=== PATIENT | female | born 1975 | race Caucasian/White ===

== ENCOUNTER 2016-08-08 10:47 | Observation (INO) | payer BC ==
--- NOTE | 2016-08-08 11:27 | CPEKG ---
Heart Rate: 71 RR Interval: 845 P-R Interval: 204 QRSD Interval: 96 QT Interval: 368 QTC Interval: 400 P [place]: 66 QRS [place]: 49 T Wave [place]: 57 EKG Severity - NORMAL ECG - EKG Impression: SINUS RHYTHM Electronically Signed By: Nani Handy 08-Aug-2016 15:12:54
--- NOTE | 2016-08-08 11:41 | EDPHY ---
H & P Stated Complaint: r forehead/r arm tingly started recently while working/hx cva following asd Time Seen by Provider: 08/08/16 11:28 HPI/ROS: CHIEF COMPLAINT: Right sided numbness HISTORY OF PRESENT ILLNESS: The patient is a 41 year old female, with history of CVA 1 year ago due to ASD, who presents to the ED with lightheadedness that started at 10:45 am. The patient felt slightly off balance while working. She then developed tingling in her right forehead and right forearm. The patient was diagnosed with ASD last year after she suffered a occipital stroke. At that time she had right sided weakness and dizziness. She feels her symptoms feel similar, but less severe than prior stroke. She does have a history of panic attacks as well. REVIEW OF SYSTEMS: Aside from elements discussed in the HPI, a comprehensive 10-point review of systems was reviewed and is negative. PAST MEDICAL HISTORY: CVA 08/2015, PSH: hysterectomy, ASC repair 09/2015, SOCIAL HISTORY: [employer] employee. VITAL SIGNS: Reviewed by me GENERAL: Well-developed, well-nourished, resting comfortably in no respiratory distress. HEENT: Atraumatic. Eyes: No icterus, no injection. Mouth: moist mucous membranes. No erythema or lesions. Neck: supple with no adenopathy. LUNGS: Clear to auscultation bilaterally, no wheezes, rhonchi or rales. CARDIAC: Regular rate and rhythm, soft systolic murmur ABDOMEN: Soft, nontender, nondistended, bowel sounds normal. BACK: No CVA tenderness. EXTREMITIES: No trauma. No edema. Range of motion is normal throughout. NEURO: Alert and oriented x3, CN 2-12 intact, motor normal throughout, sensation intact to light touch. No word finding difficulty, fluent speech. SKIN: Warm and dry, no rash. PSYCHIATRIC: Normal mentation, no agitation. Portions of this note were transcribed by a biomedical field service engineer. I personally performed a history, physical exam, medical decision making, and confirmed accuracy of information the transcribed note. Source: Patient - Personal History LMP (Females 10-55): Hysterectomy Current Tetanus/Diphtheria Vaccine: Yes - Medical/Surgical History Hx Asthma: No Hx Chronic Respiratory Disease: No Hx Diabetes: No Hx Cardiac Disease: Yes Hx Renal Disease: No Hx Cirrhosis: No Hx Alcoholism: No Hx HIV/AIDS: No Hx Splenectomy or Spleen Trauma: No Other PMH: PMH: CVA 08/2015,. PSH: hysterectomy, heart surgery (due to hole in heart) 09/2015, - Social History Smoking Status: Never smoked Constitutional: Initial Vital Signs Temperature (C) 36.7 C 08/08/16 10:51 Heart Rate 85 08/08/16 10:51 Respiratory Rate 18 08/08/16 10:51 Blood Pressure 144/89 H 08/08/16 10:51 O2 Sat (%) 95 08/08/16 10:51 O2 Delivery Mode Room Air Allergies/Adverse Reactions: Penicillins Allergy (Verified 08/08/16 10:50) Home Medications: Medication Instructions Recorded Clopidogrel Bisulfate [Plavix (*)] 75 mg PO DAILY@04/12/16 Escitalopram Oxalate [Lexapro] 20 mg PO DAILY@04/12/16 Pravastatin Sodium [Pravachol] 40 mg PO DAILY@04/12/16 clonazePAM [Klonopin (*)] 0.5 - 1 mg PO BID PRN 04/12/16 Herbals/Supplements -Info Only 1 ea PO DAILY 08/08/16 Vitamin B Complex [B Complex] 1 each PO DAILY 08/08/16 Medical Decision Making - Diagnostics EKG Interpretation: The 12 lead EKG was interpreted by myself. See hard copy and/or "tracemaster" electronic copy for interpretation: Sinus rhythm. Imaging: Stat CT scan of head: no intracranial hemorrhage, no acute findings. Left occipital cephalomalacia from old infarct. Discussed with radiologist. See full report. Images viewed myself. ED Course/Re-evaluation: Stroke alert called at 11:[address] negative. 12:05 pm: I spoke to the [facility] neurologist, Dr. De La Rosa. Patient interviewed using the telemedicine robot by Dr De La Rosa. Plan no TPA, needs MRI and further eval to ensure ASD is closed. Discussed with hospitalist service, Dr Bustillos, and with neurology, Dr Orozco. Echocardiogram ordered; per rv service technician bubble study was normal, no evidence of right to left shunting. 12:30 pm: The patient will be admitted to [facility]. Differential Diagnosis: Differential diagnoses the patient's presenting complaints was considered including but not limited to intracranial injury, TIA, ischemic cerebrovascular accident, hemorrhagic cerebrovascular accident, hypoglycemia, complex migraine , metastases, tumor, seizure, or electrolyte abnormality Consult/Admit Bed Type: [facility] Data Points Laboratory Results: Laboratory Results 08/08/16 11:26 08/08/16 11:26 Medications Given: Discontinued Medications Aspirin (Aspirin) 324 mg PO EDNOW ONE Stop: 08/08/16 11:46 Last Admin: 08/08/16 12:31 Dose: 324 mg Clopidogrel Bisulfate (Plavix) 75 mg PO DAILY URBANO Stop: 02/05/17 08:59 Last Admin: 08/09/16 10:06 Dose: Not Given Pravastatin Sodium (Pravachol) 40 mg PO DAILY@19 URBANO Stop: 02/04/17 18:59 Last Admin: 08/08/16 19:45 Dose: 40 mg Departure - Departure Disposition: [facility] Inpatient Acute Clinical Impression: Right facial numbness, History of stroke Condition: Good Report Scribed for: Nani Handy Report Scribed by: Margarita Pryor Date of Report: 08/08/16 Time of Report: 11:45
[2016-08-08] MEDS ORDERED: ASPIRIN 81 MG CHEWABLE TAB PO ONE (11:45)
[2016-08-08 11:51] LABS: % IMMATURE GRANULYOCYTES 0.2 % (0.0-1.1); ABSOLUTE IMMATURE GRANULOCYTES 0.02 10^3/uL (0.00-0.10); ADD DIFF? NO; ADD MORPH? NO; ADD SCAN? NO; ATYPICAL LYMPHOCYTE FLAG 10 (0-99); FRAGMENT RBC FLAG 0 (0-99); HEMATOCRIT 43.8 % (38.0-47.0); HEMOGLOBIN 15.2 g/dL (12.6-16.3); LEFT SHIFT FLG 0 (0-99); LIPEMIA HEMOLYSIS FLAG 90 (0-99); MEAN CELL HEMOGLOBIN 31.5 pg (27.9-34.1); MEAN CELL HEMOGLOBIN CONCENTR. 34.7 g/dL (32.4-36.7); MEAN CELL VOLUME 90.9 fL (81.5-99.8); MEAN PLATELET VOLUME 9.9 fL (8.7-11.7); PLATELET CLUMPS FLAG 0 (0-99); PLATELET COUNT 183 10^3/uL (150-400); RED BLOOD CELL COUNT 4.82 10^6/uL (4.18-5.33); RED CELL DISTRIBUTION WIDTH 13.2 % (11.5-15.2)
[2016-08-08 11:59] LABS: ANION GAP 10 mEq/L (8-16); CALCIUM 8.8 mg/dL (8.5-10.4); CARBON DIOXIDE 22 mEq/l (22-31); CHLORIDE 108 mEq/L (97-110); CREATININE 0.6 mg/dL (0.6-1.0); GLOMERULAR FILTRATION RATE > 60; GLUCOSE 93 mg/dL (70-100); INR 0.95 (0.83-1.16); POTASSIUM 4.1 mEq/L (3.5-5.2); PROTIME(PATIENT) 12.6 SEC (12.0-15.0); SODIUM 140 mEq/L (134-144)
--- NOTE | 2016-08-08 12:05 | CT ---
CT Head Without Contrast History: History of occipital infarct with ASD, interval ASD repair, right arm and facial tingling. C omparison: None available. Technique: Axial unenhanced images were obtained from the vertex through the skull base. Dose reducti on techniques were utilized. Findings: Mild encephalomalacia in the left occipital lobe is compatible with reported history of old infarct. No definite acute infarct is identified. The ventricles and sulci are normal. No intracran ial hemorrhage is identified. No extraaxial fluid collections are identified. There is no mass effec t. The skull and skull base are unremarkable. The visible paranasal sinuses and mastoid air cells a re normally aerated. Impression: No acute intracranial findings. If symptoms persist and clinical suspicion warrants, cons ider MRI. Findings discussed with Nani Handy today at 1201 hours.
[2016-08-08 12:11] LABS: TROPONIN I < 0.012 ng/mL (0-0.034)
[2016-08-08] MEDS ORDERED: ASPIRIN 81 MG CHEWABLE TAB ONE (12:33)
--- NOTE | 2016-08-08 12:34 | DX ---
PA and lateral chest History: Acute neurologic change, history of ASD repair. Comparison: None available. Findings: Granuloma is present in the right mid chest. The lungs are otherwise clear. There is no pne umothorax or pleural effusion. Heart size is normal. Atrial septal closure device is noted. The bones are normal. Impression: No acute findings in the chest.
--- NOTE | 2016-08-08 15:34 | ECHO ---
[id number] + + [address] : : [place] [address] : : [phone] + + Adult Echocardiographic Report + ------+ :Name: Mary Ann BLANDON Date: 08/08/2016 01:27 PM : : Hospital Admission Number: [id number] Locatio n: 144: :: 1975 Gender: Female Height: 66 in : :Age: 41 yrs Race: WH Weight: 189 lb : :Reason For Study: Hx of ASD closure/now stroke symptoms : : BSA: 2.0 meters 2 : :History: Amplatzer in place : + ------+ MMode/2D Measurements & Calculations IVSd: 0.90 cm LVIDd: 4.8 cm FS: 42.9 % Ao root diam: LVPWd: 0.60 cm LVIDs: 2.7 cm EDV(Teich): 2.9 cm 106.5 ml LA dimension: ESV(Teich): 3.7 cm 27.8 ml EF(Teich): 73.9 % LVLd ap4: 8.6 cm SV(MOD-sp4): EDV(MOD-sp4): 62.0 ml 88.0 ml LVLs ap4: 6.5 cm ESV(MOD-sp4): 26.0 ml EF(MOD-sp4): 70.5 % Normal Measurement Values: + + :LVIDd (3.5-5.7cm) IVSd (0.6-1.1cm) LVPWd (0.6-1.1cm) Aortic Root (2.0-3.7cm)Left Atrium (1.5-4.0cm): :LV Vol(d) (76-115ml) LV Vol(s) (29-48ml) Ejec Fraction (50-65%)PV Bertram (0.6- 1.2m/s) TV Bertram (0.4-1.0m/s) : :MV E Bertram (0.8-1.0m/s)MV A Bertram (0.3-1.0m/s)LVOT Bertram (0.7-1.2m/s) Asc Ao Bertram ( 0.9-1.8m/s) : + + Doppler Measurements & Calculations MV E max bertram: 110.0 cm/sec Ao V2 max: 138.0 cm/sec TR max bertram: 217.0 cm/sec MV A max bertram: 61.7 cm/sec Ao max P.6 mmHg TR max P.8 mmHg MV E/A: 1.8 RAP systole: 5.0 mmHg RVSP(TR): 23.8 mmHg Left Ventricle The left ventricle is normal in size. There is normal left ventricular wall thickness. Left ventricular systolic function is normal. Ejection Fraction = 65-70%. There is Doppler evidence for diastolic dysfunction. No regional wall motion abnormalities noted. Right Ventricle The right ventricle is normal in size and function. Atria The left atrial size is normal. Right atrial size is normal. Injection of contrast documented no interatrial shunt. Amplatzer device seen associated with interatrial septum. Mitral Valve The mitral valve is normal in structure and function. There is no evidence of mitral valve prolapse. There is no mitral valve stenosis. Tricuspid Valve Normal tricuspid valve. There is mild tricuspid regurgitation. Right ventricular systolic pressure is normal. Aortic Valve The aortic valve is trileaflet. The aortic valve opens well. There is no aortic stenosis. There is no aortic insufficiency. Pulmonic Valve The pulmonic valve is normal in structure and function. There is no pulmonic valvular regurgitation. Great Vessels The aortic root is normal size. Pericardium/Pleural There is no pericardial effusion. Conclusion A complete two-dimensional transthoracic echocardiogram was performed (2D, M-mode, Doppler and color flow Doppler). Left ventricular systolic function is normal. Ejection Fraction = 65-70%. There is Doppler evidence for diastolic dysfunction. Injection of contrast documented no interatrial shunt. There is mild tricuspid regurgitation. Right ventricular systolic pressure is normal. Amplatzer device seen associated with interatrial septum No obvious cardiac source of embolism. Consider JERAD. No prior echo in this system. Final Reading Physician: Dr Sarah Lamb electronically signed on 08/08/2016 03:32 PM Ordering Physician: Nani Handy Performed By: Yaneli Louis [facility]
--- NOTE | 2016-08-08 16:40 | PDEACUHP ---
History and Physical - Chief Complaint dizziness, right sided facial numbness - History of Present Illness 41 yo female with h/o prior CVA in 08/2015 presents to ED with dizziness, right facial numbness and RUE paresthesias, all of which have resolved at the time of my interview. Workup of her previous stroke revealed an ASD, which was repaired in 09/2015. She has also been diagnosed with complex migraines in the past. She denies headache at this time. She is experiencing photosensitivity associated with these symptoms. She also endorses nausea, no vomiting. Her symptoms lasted for about an hour. She is quite anxious and fearful of having another stroke. In the ED, a CT head is negative. She is admitted to the hospital for further evaluation. History Information - Allergies/Home Medication List Allergies/Adverse Reactions: Penicillins Allergy (Verified 08/08/16 10:50) Home Medications: Clopidogrel Bisulfate [Plavix (*)] 75 mg PO DAILY@04/12/16 [Last Taken ] Escitalopram Oxalate [Lexapro] 20 mg PO DAILY@04/12/16 [Last Taken 08/07/16] Pravastatin Sodium [Pravachol] 40 mg PO DAILY@04/12/16 [Last Taken 08/07/16] clonazePAM [Klonopin (*)] 0.5 - 1 mg PO BID PRN 04/12/16 [Last Taken 08/08/16 0.5MG] Herbals/Supplements -Info Only 1 ea PO DAILY 08/08/16 [Last Taken Unknown] Vitamin B Complex [B Complex] 1 each PO DAILY 08/08/16 [Last Taken Unknown] I have personally reviewed and updated: family history, medical history, social history, surgical history - Past Medical History CVA, migraines (anxiety / panic attacks, ASD s/p repair) - Surgical History Reports: hysterectomy Additional surgical history: . ASD repair. - Family History Positive for: non-pertinent - Social History Smoking Status: Never smoked Drug Use: None Review of Systems ROS: 10pt was reviewed & negative except for what was stated in HPI & below Physical Exam Temp Pulse Resp BP Pulse Ox 37.2 C 64 16 105/71 96 08/08/16 12:57 08/08/16 12:57 08/08/16 12:57 08/08/16 12:57 08/08/16 12:57 Constitutional: no apparent distress Eyes: PERRL Ears, Nose, Mouth, Throat: moist mucous membranes Cardiovascular: regular rate and rhythym Respiratory: no respiratory distress, clear to auscultation Gastrointestinal: normoactive bowel sounds, soft, non-tender abdomen Skin: warm Neurologic: AAOx3, CN II-XII Intact, other (No facial droop, negative pronator drift, sensation intact) Psychiatric: interacting appropriately Lab Data & Imaging Review 08/08/16 11:26 08/08/16 11:26 WBC 8.67 10^3/uL (3.80-9.50) 08/08/16 11: RBC 4.82 10^6/uL (4.18-5.33) 08/08/16 11:26 Hgb 15.2 g/dL (12.6-16.3) 08/08/16 11: POC Hgb 16.0 gm/dL (12.3-15.9) H 08/08/16 11:23 Hct 43.8 % (38.0-47.0) 08/08/16 11: POC Hct 47 % (35.5-47.5) 08/08/16 11:23 MCV 90.9 fL (81.5-99.8) 08/08/16 11: MCH 31.5 pg (27.9-34.1) 08/08/16 11: MCHC 34.7 g/dL (32.4-36.7) 08/08/16 11: RDW 13.2 % (11.5-15.2) 08/08/16 11:26 Plt Count 183 10^3/uL (150-400) 08/08/16 11:26 MPV 9.9 fL (8.7-11.7) 08/08/16 11:26 Neut % (Auto) 65.5 % (39.3-74.2) 08/08/16 11: Lymph % (Auto) 24.7 % (15.0-45.0) 08/08/16 11:26 Dickenson % (Auto) 5.8 % (4.5-13.0) 08/08/16 11:26 Eos % (Auto) 3.1 % (0.6-7.6) 08/08/16 11:26 Baso % (Auto) 0.7 % (0.3-1.7) 08/08/16 11: Nucleat RBC Rel Count 0.0 % (0.0-0.2) 08/08/16 11:26 Absolute Neuts (auto) 5.68 10^3/uL (1.70-6.50) 08/08/16 11: Absolute Lymphs (auto) 2.14 10^3/uL (1.00-3.00) 08/08/16 11:26 Absolute Monos (auto) 0.50 10^3/uL (0.30-0.80) 08/08/16 11: Absolute Eos (auto) 0.27 10^3/uL (0.03-0.40) 08/08/16 11:26 Absolute Basos (auto) 0.06 10^3/uL (0.02-0.10) 08/08/16 11: Absolute Nucleated RBC 0.00 10^3/uL (0-0.01) 08/08/16 11: Immature Gran % 0.2 % (0.0-1.1) 08/08/16 11: Immature Gran # 0.02 10^3/uL (0.00-0.10) 08/08/16 11: PT 12.6 SEC (12.0-15.0) 08/08/16 11:26 INR 0.95 (0.83-1.16) 08/08/16 11:26 POC Sodium 142 mEq/L (134-144) 08/08/16 11:23 Sodium 140 mEq/L (134-144) 08/08/16 11:26 POC Potassium 3.8 mEq/L (3.3-5.0) 08/08/16 11: Potassium 4.1 mEq/L (3.5-5.2) 08/08/16 11:26 POC Chloride 107 mEq/L (96-108) 08/08/16 11:23 Chloride 108 mEq/L (97-110) 08/08/16 11: Carbon Dioxide 22 mEq/l (22-31) 08/08/16 11: Anion Gap 10 mEq/L (8-16) 08/08/16 11:26 POC BUN 7 mg/dL (7-23) 08/08/16 11: BUN 8 mg/dL (7-23) 08/08/16 11:26 Creatinine 0.6 mg/dL (0.6-1.0) 08/08/16 11: POC Creatinine 0.6 mg/dL (0.6-1.2) 08/08/16 11:23 Estimated GFR > 60 08/08/16 11:26 Glucose 93 mg/dL (70-100) 08/08/16 11: POC Glucose 95 mg/dL (70-100) 08/08/16 11: Calcium 8.8 mg/dL (8.5-10.4) 08/08/16 11: Troponin I < 0.012 ng/mL (0-0.034) 08/08/16 11:26 Assessment & Plan Assessment: History of stroke (Acute) Right facial numbness (Acute) H/O Migraines Anxiety / panic CT negative. Symptoms completely resolved. Given her history, will proceed with MRI, though suspicion is low for acute CVA. She has had an ASD repaired and repeat echo ordered by ED shows no evidence of ASD. Will continue Plavix, statin. Neuro checks, observe on telemetry. Neurology is consulted. Continue Klonopin for anxiety / panic. Full code Dispo - obs
[2016-08-08] MEDS ORDERED: clonazePAM 0.5 MG TAB PO PRN (16:49)
[2016-08-08 17:44] LABS: CHOLESTEROL 119 mg/dL (140-200); CHOLESTEROL/HDL RATIO 3.05 RATIO (1.00-4.44); HIGH DENSITY LIPOPROTEIN 39 mg/dL (40-95); LDL/HDL RATIO 1.38 RATIO (1.00-3.22); LOW DENSITY LIPOPROTEIN 54 mg/dL (70-100); NON-HIGH DENSITY LIPOPROTEIN 80 mg/dL (90-129); TRIGLYCERIDE 132 mg/dL (35-135); VERY LOW DENSITY LIPOPROTEINS 26 mg/dL (8-25)
--- NOTE | 2016-08-08 18:05 | MR ---
MRI of the Brain (Without Contrast) History: Right-sided facial numbness, history of left occipital CVA. Comparison: Noncontrast head CT earlier in the day (normal) Technique: T1-weighted images were acquired axially and sagittally from the foramen magnum to the ve rtex. Axial fast inversion recovery, fast T2-weighted, GRE and diffusion-weighted axial images were obtained without contrast. Findings: There are a few bilateral, subcortical and deep white matter, foci of isovolumic T2-weighte d, nonspecific hyperintensity that could be related to previous migraine headaches, head trauma or a multifocal demyelinating process such as multiple sclerosis or Lyme disease. Perhaps one is periventr icular, adjacent to the frontal horn of the right lateral ventricle. None are present in the posterio r fossa. None are bright on the diffusion study or are associated with hemorrhage on the gradient gene dy. The ventricles, cisterns, and sulci are normal without atrophy, hydrocephalus, midline shift, herniat ion, or epidural/subdural hematomas. No intracranial hemorrhage or masses. Diffusion-weighted sequenc e demonstrates no acute infarct. Cerebellar tonsils are in normal position. Pituitary gland is normal in size. Normal signal flow-void in the superior sagittal sinus, basilar artery, and bilateral inter nal carotid arteries indicating patency. Paranasal sinuses and mastoid air cells are clear. There is no fluid in either middle ear. No parotid gland abnormality is identified. The cerebellar pontine ang les and internal auditory canals are grossly normal. Impression: Unusual number of white matter foci in a 41-year-old female. A multifocal demyelinating p rocess remains in the differential diagnosis. Please see above.
[2016-08-08] MEDS ORDERED: PRAVASTATIN SODIUM 40 MG TAB PO SCH (19:00)
--- NOTE | 2016-08-08 21:22 | GCON ---
[f rep st] CONSULTATION NEUROLOGY CONSULTATION DATE OF CONSULTATION: 08/08/2016 REFERRING PHYSICIAN: Devika Bustillos MD CHIEF COMPLAINT: Paresthesias. HISTORY OF PRESENT ILLNESS: The patient is a very pleasant 41-year-old lady who had a left occipital stroke in August of 2015 while visiting her family in [place]. At that time, she presented with right face, arm, and leg, along with torso, numbness. She also had a right visual field cut. She was found to have a left occipital stroke and a significant atrial septal defect. It was unclear whether she had any kind of intracardiac thrombus from the patient's report. She states she did not have any ultrasounds of her legs. We do not have any outside records. This is from the patient's description of her care in [place]. She said she was put on anticoagulation and discharged with followup here in [place]. She then had a closure procedure here in [place] at [facility] with an Amplatzer device and was kept on anticoagulation for another 6 weeks and then switched to Plavix which she continues at 75 mg daily. Since her stroke, she developed some additional symptoms. Before going forward , I will note that she had premorbid (meaning prestroke) migraines described as bifacial paresthesias, followed by mild headaches and nausea, and significant anxiety. After the stroke, she began having increased anxiety with panic attacks along with intermittent co-mingling migraine symptoms with these attacks. She has had around 50 of these stereotyped events of anxiety and paresthesias along with migrainous symptoms. She had another one of these events today, which was more intense, which led to today's evaluation. 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 She had a very brief vertiginous feeling of the floor moving beneath her feet for a second or so when she was with a patient. She stepped out of the office and then began feeling panicky. She was very certain she then felt panic first, and then with the panic she then began feeling paresthesias in the right side of her face and right arm, as if there were pins and needles, which lasted about an hour and then resolved. There was no weakness. No field cut. She now has a mild throbbing headache. In the past, since the stroke, she does get right-sided paresthesias with panic attacks. Today's event was just a bit more intense. She had a head CT which showed nothing acute. It showed some old encephalomalacia in the left occipital region. Echocardiogram shows the closure device in place without any obvious cardiac source of embolism. ECG shows normal sinus rhythm. REVIEW OF SYSTEMS: A review of systems was done. The 10-point review was only pertinent for the HPI. PAST MEDICAL HISTORY: Stroke, ASD closure, anxiety, and lipids. MEDICATIONS: Home medications: Clonazepam 0.5 to 1 mg b.i.d. p.r.n., Plavix 75 mg daily, Lexapro 20 mg daily, pravastatin 40 mg daily. SOCIAL HISTORY: She is and has 2 children. 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. FAMILY HISTORY: Negative for heritable neurologic disease. PHYSICAL EXAM: VITAL SIGNS: Her blood pressure is 105/71, temperature is 36.7 , O2 saturations are 96%, heart rate 64 and regular radial pulses, respiratory rate 16. GENERAL: In no acute distress. Very pleasant. NEUROLOGIC: Mental function: She is awake and alert. No aphasia. Cranial nerve exam: Normal II through VII, XI and XII. No facial numbness. No field cuts on my confrontational exam. Motor exam: Normal strength, tone and deep tendon reflexes throughout. Sensory exam: Normal to light touch in all 4 extremities. Coordination: Normal in upper and lower extremities. IMPRESSION AND PLAN: 1. Chronic left occipital infarct thought to be due to intracardiac shunt. 2. Status post atrial septal defect closure. 3. History of migraines. 4. History of anxiety with panic attacks. Since the patient has had her stroke, she has developed worsening of her underlying anxiety with panic attacks and migraines. Indeed, she tells me that she has had right-sided paresthesias with panic attacks previously, along with co-mingling migrainous symptoms. In essence, she has a background of migraines and anxiety prior to having her left occipital stroke. She now has these conditions that have some focality in their expression and exacerbation due to health-related anxiety which causes the symptoms to occur in co-mingling patterns and are often triggered by the patient's panic attacks. We discussed at length. I recommended we proceed with an MRI brain without contrast to ensure there are no diffusion-weighted abnormalities. If there is no evidence of acute stroke, I recommend she continue Plavix 75 mg daily and followup with her intake specialist regarding her long-term antithrombotic therapy. Beyond that, I see the other primary disorder being her anxiety and panic disorder. Therefore, I have recommend she contact her primary care physician upon discharge and ask for a referral to Psychiatry for further medication management and referral to a therapist. Lastly, we discussed meditation as an adjunct practice to pharmacotherapy for her anxiety. If her MRI does not show any acute stroke, she certainly can be discharged tomorrow any time with the plan as outlined above. She will be on telemetry overnight. If there are any acute abnormalities, she will be kept in the hospital and I will see her tomorrow. Thank you for this consultation. /[id number]/MODL MTDD
[2016-08-09 03:25] VITALS: O2SAT 96
[2016-08-09 08:36] VITALS: BP 116/67; PULSE 61; RESP 12; TEMP 98.1
[2016-08-09] MEDS ORDERED: CLOPIDOGREL BISULFATE 75 MG TAB PO SCH (09:00)
[2016-08-09] MEDS ORDERED: ESCITALOPRAM OXALATE 10 MG TAB PO SCH (19:00)
--- NOTE | 2016-08-10 06:07 | GDS ---
[f rep st] DISCHARGE SUMMARY DISCHARGE DIAGNOSES: 1. Facial numbness and right upper extremity paresthesia. 2. History of chronic left occipital stroke. 3. History of atrial septal defect status post closure in September 2015. 4. History of migraines. 5. Anxiety disorder and panic attacks. CONSULTANTS: Hugo Orozco MD, Neurology. HISTORY: For details please see dictated history and physical dated August 08. In brief, the patie wenceslao is a 41-year-old female with a history of prior left occipital CVA in August 2015 who presents t o the emergency department with dizziness, right facial numbness, and right upper extremity paresthes ias. She was admitted to the hospital for further evaluation. HOSPITAL COURSE: Patient was admitted to the observation unit. She had a negative head CT in the em ergency department. Given her symptoms and history, a brain MRI was performed, results of which show ed some white matter foci, but no acute infarct. She was monitored on telemetry with no abnormal gavin nts. She underwent echocardiogram, which showed evidence of no interatrial shunt. Her symptoms had completely resolved by the time I interviewed her upon admission. I discussed the case with our on-c all neurologist, Dr. Orozco. After reviewing her imaging, we are confident she did not suffer an acute stroke. Some consideration is given to a migraine phenomenon versus anxiety panic attack as an etiol ogy of her symptoms. DISPOSITION: Patient is discharged home in stable condition. DISCHARGE MEDICATIONS: Please see [employer] for complete updated outpatient medication list. She naomi l continue all outpatient medications as prescribed. No new medications are ordered at discharge. FOLLOWUP: 1. Dr. Delroy Wadsworth, primary care provider, where she is instructed to follow up and request referra l to a counselor and consideration for referral to a psychiatrist for ongoing management of her anxie ty panic disorder. 2. Dr. Hugo Orozco of Neurology as needed. /[id number]/MODL
== END 2016-08-09 10:00 | disposition home or self-care (01) ==
LOC: F1N 12:48
PROVIDERS: ADMIT Hospitalist; ATTEND Hospitalist
DX: R20.2 Paresthesia of skin (principal); F41.0 Panic disorder [episodic paroxysmal anxiety]; G43.909 Migraine, unspecified, not intractable, without status migrainosus; Z88.0 Allergy status to penicillin; Z87.798 Personal history of other (corrected) congenital malformations
CPT/HCPCS: 70450; 70551; 71020; 93005; 93306; G0378; 82947-QW